=== PATIENT | male | born 1990 | race Caucasian/White ===

== ENCOUNTER → 2017-05-02 | Outpatient (CLI) | payer MEDICARE, OTHER ==
[~2017-05-02] MED LIST: ATORVASTATIN CA40 MG PO; FENOFIBRATE145 MG PO; FLONASE 0.05% N16 GM; HYDROCHLOROTHIA25 MG PO; LANTUS SOL100 UNIT/1 SQ; LATUDA60 MG PO; METOPROLOL TART50 MG PO; NOVOLOG FL100 UNIT/1 SQ; NOVOLOG MI100 UNIT/1 SQ; SERTRALINE HCL100 MG PO
== END ==
LOC: US 07:58
DX: E78.5 Hyperlipidemia, unspecified (principal); R94.5 Abnormal results of liver function studies; K76.0 Fatty (change of) liver, not elsewhere classified; R16.0 Hepatomegaly, not elsewhere classified
CPT/HCPCS: 76705

== ENCOUNTER 2017-05-07 18:53 | Observation (INO) | payer MEDICARE, OTHER ==
[~2017-05-07] VITALS: Ht 182.9 cm; Wt 123.8 kg
[2017-05-07 20:11] LABS: HEMOGLOBIN 16.3 gm/dl (14.0-17.5); RED BLOOD COUNT 5.16 M/UL (4.20-5.50); WHITE BLOOD COUNT 7.2 K/UL (4.5-11.0)
[2017-05-07 20:24] LABS: BUN/CREATININE RATIO 10 (0-10)
[2017-05-08 06:50] LABS: BUN/CREATININE RATIO 10 (0-10)
[2017-05-08] MEDS ORDERED: SERTRALINE HCL100 MG PO (14:17)
[2017-05-08] MEDS ORDERED: LATUDA60 MG PO (14:17)
[2017-05-08] MEDS ORDERED: HYDROCHLOROTHIA25 MG PO (14:18)
[2017-05-08] MEDS ORDERED: FENOFIBRATE145 MG PO (14:18)
[2017-05-08] MEDS ORDERED: ATORVASTATIN CA40 MG PO (14:18)
[2017-05-08] MEDS ORDERED: METOPROLOL TART50 MG PO (14:20)
[2017-05-08] MEDS ORDERED: FLONASE 0.05% N16 GM (14:20)
[2017-05-08] MEDS ORDERED: LANTUS SOL100 UNIT/1 SQ (14:21)
[2017-05-08] MEDS ORDERED: NOVOLOG MI100 UNIT/1 SQ (14:22)
[2017-05-09 06:20] LABS: BUN/CREATININE RATIO 10 (0-10)
[2017-05-09] MEDS ORDERED: NOVOLOG FL100 UNIT/1 SQ (14:26)
== END 2017-05-09 17:21 | disposition home or self-care (01) ==
LOC: ER1 18:53 → ZEROF 21:30 → M/S 05-08 09:44
PROVIDERS: Emergency Medicine; Hospitalist; ADMIT Internal Medicine
DX: E11.65 Type 2 diabetes mellitus with hyperglycemia (principal); E87.6 Hypokalemia; F90.9 Attention-deficit hyperactivity disorder, unspecified type; F84.0 Autistic disorder; E78.5 Hyperlipidemia, unspecified; E78.1 Pure hyperglyceridemia; I10 Essential (primary) hypertension; E87.1 Hypo-osmolality and hyponatremia; R94.31 Abnormal electrocardiogram [ECG] [EKG]; Z79.4 Long term (current) use of insulin; Z79.899 Other long term (current) drug therapy
CPT/HCPCS: ECHO; 36415; 71020; 80048; 80053; 81001; 82009; 82043; 82570; 82800; 82962; 83036; 83690; 83735; 83880; 84681; 85025; 87086; 93005; 93306; 96360; 96361; 96372; 99285; G0378; J1815; J1817; J3480; J7030; Q0162

== ENCOUNTER 2021-03-23 16:22 | Emergency (ER) | payer MEDICARE, OTHER ==
[2021-03-23] MEDS ORDERED: GLUCOTROL XL2.5 MG PO (20:53)
== END 2021-03-23 21:16 | disposition home or self-care (01) ==
LOC: ER1 16:22
DX: E11.9 Type 2 diabetes mellitus without complications (principal); Z79.84 Long term (current) use of oral hypoglycemic drugs
CPT/HCPCS: 82962; 99282